=== PATIENT | female | born 1965 | race Caucasian/White ===

== ENCOUNTER 2017-05-29 12:54 | Emergency (ER) | payer BC ==
[~2017-05-29] VITALS: Ht 165.1 cm; Wt 68.0 kg
[2017-05-29 12:55] VITALS: BP_SYST 143
[2017-05-29 13:51] LABS: BASOPHILS # (AUTO) 0.1 K/uL (0.0-0.2); BASOPHILS % (AUTO) 1.3 % (0.0-2.0); EOSINOPHILS # (AUTO) 0.1 K/uL (0.0-0.4); HEMATOCRIT 46.7 % (36-48); HEMOGLOBIN 15.4 g/dL (12.0-16.0); LYMPHOCYTES # (AUTO) 2.1 K/uL (1.0-5.5); LYMPHOCYTES % (AUTO) 22.3 % (20.5-51.5); MEAN CORPUSCULAR HEMOGLOBIN 29 pg (27-31); MEAN CORPUSCULAR HGB CONC 33 % (32-36); MEAN CORPUSCULAR VOLUME 89 fL (79.0-98.0); MONOCYTES # (AUTO) 0.8 K/uL (0.0-1.0); MONOCYTES % (AUTO) 8.2 % (1.7-9.3); NEUTROPHILS # (AUTO) 6.5 K/uL (1.8-7.7); NEUTROPHILS % (AUTO) 67.2 % (40.0-70.0); PLATELET COUNT (AUTO) 250 K/uL (130-430); RED BLOOD CELL COUNT(AUTO) 5.28 MIL/uL (4.2-6.2); RED CELL DISTRIBUTION WIDTH 12.2 % (9.0-15.0); WHITE BLOOD COUNT (AUTO) 9.6 K/uL (4.8-10.8)
[2017-05-29 13:59] LABS: ANION GAP 8 (5-15); CALCIUM 9.5 mg/dL (8.4-11.0); CHLORIDE 100 mmol/L (98-107); CREATININE 0.81 mg/dL (0.55-1.30); GLUCOSE 100 mg/dL (70-99); POTASSIUM 4.3 mmol/L (3.5-5.1); SODIUM SERUM 138 mmol/L (136-145); UREA NITROGEN, BLOOD 10 mg/dL (8-21)
[2017-05-29 14:02] LABS: PROTHROMBIN TIME 10.4 SECS (9.5-12.5)
[2017-05-29 14:08] LABS: ALANINE AMINOTRANSFERASE 87 U/L (12-78); AMYLASE 58 U/L (0-100); ASPARTATE AMINOTRANSFERASE 36 U/L (10-37); LIPASE 143 U/L (73-393); TOTAL BILIRUBIN 0.9 mg/dL (0.0-1.0); TOTAL PROTEIN, SERUM 7.7 g/dL (6.4-8.3)
[2017-05-29] MEDS ORDERED: NACL 0.9% 1,000 ML IV ONE (14:15)
[2017-05-29 14:25] LABS: GFR AFRICAN AMERICAN 96 mL/min (>90)
[2017-05-29 15:06] LABS: BILIRUBIN,URINE NEGATIVE (NEGATIVE); BLOOD, URINE 1+ (NEGATIVE); CLARITY/URINE CLEAR (CLEAR); COLOR,URINE YELLOW (YELLOW); GLUCOSE,URINE NEGATIVE (NEGATIVE); KETONES,URINE NEGATIVE (NEGATIVE); LEUKOCYTE ESTERASE ,URINE NEGATIVE (NEGATIVE); NITRITE, URINE NEGATIVE (NEGATIVE); PROTEIN URINE NEGATIVE (NEGATIVE); UROBILINOGEN,URINE 0.2 (0.2-1.0)
[2017-05-29 15:14] LABS: BACTERIA,URINE FEW /HPF (None Seen); MUCUS,URINE None Seen /LPF (None Seen); RBC,URINE 0-3 /HPF (0-3); WBC,URINE 0-3 /HPF (0-3)
[2017-05-29] MEDS ORDERED: IOHEXOL 100 ML IV ONE (15:31)
[2017-05-29 16:54] VITALS: BP_SYST 127
== END 2017-05-29 17:02 | disposition home or self-care (01) ==
LOC: SED 12:54
DX: K57.92 Diverticulitis of intestine, part unspecified, without perforation or abscess without bleeding (principal); Z98.890 Other specified postprocedural states
CPT/HCPCS: 36415; 74177; 80053; 81000; 81025; 82150; 83605; 83690; 84484; 85025; 85610; 87040; 96360; 99285; J7030; Q9967

== ENCOUNTER 2017-12-11 07:34 | Emergency (ER) | payer BC ==
[~2017-12-11] VITALS: Ht 167.6 cm; Wt 68.0 kg
[2017-12-11 07:40] VITALS: BP_SYST 119
[2017-12-11] MEDS ORDERED: NACL 0.9% 1,000 ML IV ONE (08:15)
[2017-12-11] MEDS ORDERED: CIPROFLOXACIN LACT 400 MG/D5W 200 ML IV SCH (10:30)
[2017-12-11] MEDS ORDERED: metroNIDAZOLE 500 mg/NS 100 ML IV ONE (10:30)
[2017-12-11] MEDS ORDERED: KETOROLAC TROMETHAMINE 30 MG VIAL IVP ONE (11:15)
[2017-12-11 13:10] VITALS: BP_SYST 126
== END 2017-12-11 13:10 | disposition home or self-care (01) ==
LOC: SED 07:34
DX: K57.92 Diverticulitis of intestine, part unspecified, without perforation or abscess without bleeding (principal)
CPT/HCPCS: 74176; 96361; 96365; 96368; 96375; 99285; J0744; J1885; J3490; J7030

== ENCOUNTER 2018-11-21 22:17 | Emergency (ER) | payer BC ==
[~2018-11-21] VITALS: Ht 167.6 cm; Wt 68.0 kg
[2018-11-21 23:00] VITALS: BP_SYST 140
[2018-11-21] MEDS ORDERED: NACL 0.9% 1,000 ML IV ONE (23:45)
[2018-11-22 00:14] LABS: HEMATOCRIT 44.5 % (36-48); HEMOGLOBIN 14.8 g/dL (12.0-16.0); MEAN CORPUSCULAR HEMOGLOBIN 30 pg (27-31); MEAN CORPUSCULAR HGB CONC 33 % (32-36); MEAN CORPUSCULAR VOLUME 90 fL (79.0-98.0); PLATELET COUNT (AUTO) 256 K/uL (130-430); RED BLOOD CELL COUNT(AUTO) 4.92 MIL/uL (4.2-6.2); RED CELL DISTRIBUTION WIDTH 12.2 % (9.0-15.0); WHITE BLOOD COUNT (AUTO) 11.3 K/uL (4.8-10.8)
[2018-11-22 00:24] LABS: CALCIUM 9.4 mg/dL (8.4-11.0); CREATININE 0.81 mg/dL (0.55-1.30); POTASSIUM 4.2 mmol/L (3.5-5.1)
[2018-11-22 00:30] LABS: ALBUMIN 3.5 g/dL (3.4-4.8); INR 0.9 (0.8-1.2); PROTHROMBIN TIME 9.5 SECS (9.5-12.5); TOTAL BILIRUBIN 0.7 mg/dL (0.0-1.0)
[2018-11-22] MEDS ORDERED: metroNIDAZOLE 500 MG TABLET PO ONE (00:30)
[2018-11-22] MEDS ORDERED: CIPROFLOXACIN HCL 500 MG TABLET PO ONE (00:30)
[2018-11-22 00:34] LABS: BAND % (MANUAL) 1 % (0-6); BASOPHILS % (MANUAL) 0 % (0-2); EOSINOPHILS % (MANUAL) 2 % (0-7); LYMPHOCYTES % (MANUAL) 18 % (20-46); MONOCYTES % (MANUAL) 7 % (0-11)
[2018-11-22] MEDS ORDERED: CIPROFLOXACIN LACT 200 MG/D5W 100 ML IV ONE (01:00)
[2018-11-22] MEDS ORDERED: DIPHENHYDRAMINE INJ 50 MG/ML VIAL IVP ONE (01:00)
[2018-11-22] MEDS ORDERED: CIPROFLOXACIN LACT 400 MG/D5W 200 ML IV ONE (01:34)
[2018-11-22] MEDS ORDERED: KETOROLAC TROMETHAMINE 30 MG VIAL IVP ONE (01:45)
[2018-11-22 03:45] VITALS: BP_SYST 138
== END 2018-11-22 03:45 | disposition home or self-care (01) ==
LOC: SED 22:17
DX: K57.92 Diverticulitis of intestine, part unspecified, without perforation or abscess without bleeding (principal); R03.0 Elevated blood-pressure reading, without diagnosis of hypertension
CPT/HCPCS: 36415; 74176; 80053; 85007; 85027; 85610; 85730; 96365; 96375; 99284; J0744; J1200; J1885; J7030 ×2

== ENCOUNTER 2019-05-19 12:05 | Emergency (ER) | payer BC ==
[~2019-05-19] VITALS: Ht 167.6 cm; Wt 63.5 kg
[2019-05-19 12:15] VITALS: BP_SYST 121
[2019-05-19 12:58] LABS: BASOPHILS # (AUTO) 0.1 K/uL (0.0-0.2); BASOPHILS % (AUTO) 0.7 % (0.0-2.0); EOSINOPHILS # (AUTO) 0.1 K/uL (0.0-0.4); EOSINOPHILS % (AUTO) 0.8 % (0.0-4.0); HEMATOCRIT 44.9 % (36-48); HEMOGLOBIN 15.2 g/dL (12.0-16.0); LYMPHOCYTES # (AUTO) 1.6 K/uL (1.0-5.5); LYMPHOCYTES % (AUTO) 17.7 % (20.5-51.5); MEAN CORPUSCULAR HEMOGLOBIN 30 pg (27-31); MEAN CORPUSCULAR HGB CONC 34 % (32-36); MEAN CORPUSCULAR VOLUME 90 fL (79.0-98.0); MONOCYTES % (AUTO) 10.5 % (1.7-9.3); NEUTROPHILS # (AUTO) 6.5 K/uL (1.8-7.7); NEUTROPHILS % (AUTO) 70.3 % (40.0-70.0); PLATELET COUNT (AUTO) 253 K/uL (130-430); RED BLOOD CELL COUNT(AUTO) 4.99 MIL/uL (4.2-6.2); RED CELL DISTRIBUTION WIDTH 13.3 % (9.0-15.0); WHITE BLOOD COUNT (AUTO) 9.2 K/uL (4.8-10.8)
[2019-05-19] MEDS ORDERED: LIDOCAINE/EPI 1% 1:100000 20 ML VIAL INJ ONE (13:00)
[2019-05-19 13:08] LABS: CALCIUM 9.7 mg/dL (8.4-11.0); CREATININE 0.96 mg/dL (0.55-1.30); POTASSIUM 4.9 mmol/L (3.5-5.1)
[2019-05-19 13:11] LABS: PROTHROMBIN TIME 9.8 SECS (9.5-12.5)
[2019-05-19 13:14] LABS: ALBUMIN 3.5 g/dL (3.4-4.8); TOTAL BILIRUBIN 0.7 mg/dL (0.0-1.0)
[2019-05-19] MEDS ORDERED: AMPICILLIN SODIUM/SULBACTAM NA 3 GM in NS 100 ML IV ONE (13:45)
[2019-05-19] MEDS ORDERED: AMPICILLIN SODIUM/SULBACTAM NA 3 GM VIAL ONE (14:36)
[2019-05-19 16:46] VITALS: BP_SYST 141
== END 2019-05-19 16:46 | disposition home or self-care (01) ==
LOC: SED 12:05
DX: K57.92 Diverticulitis of intestine, part unspecified, without perforation or abscess without bleeding (principal)
CPT/HCPCS: 36415; 74018; 80053; 81002; 82150; 83605; 83690; 84703; 85025; 85610; 85730; 87040; 96365; 99284; J0295